=== PATIENT | female | born 1960 | race Two or more races ===

== ENCOUNTER 2024-10-16 07:23 | Emergency (ER) | payer OTHER ==
[~2024-10-16] VITALS: Ht 152.4 cm; Wt 70.3 kg
[~2024-10-16 07:23] MED LIST: AVALIDE 300-12.1 TA1; AVALIDE 300-12.1 TAB
[2024-10-16] MEDS ORDERED: NEURONTIN300 MG PO (08:04)
[2024-10-16] MEDS ORDERED: ORPHENADRINE CITRATE 30 MG/ML AMPUL IM ONE (08:30)
[2024-10-16] MEDS ORDERED: KETOROLAC TROMETHAMINE 60 MG VIAL IM ONE ×2 (08:30→08:37)
[2024-10-16] MEDS ORDERED: DEXAMETHASONE SODIUM PHOSPHATE 4 MG/ML VIAL IM ONE (08:30)
[2024-10-16] MEDS ORDERED: ORPHENADRINE CITRATE 30 MG/ML AMPUL ONE (08:36)
[2024-10-16] MEDS ORDERED: DEXAMETHASONE SODIUM PHOSPHATE 4 MG/ML VIAL ONE (08:37)
== END 2024-10-16 10:44 | disposition home or self-care (01) ==
LOC: ER 07:23
DX: M54.50 Low back pain, unspecified (principal); Z98.1 Arthrodesis status; I10 Essential (primary) hypertension
CPT/HCPCS: 96372; 99282; J1100; J1885; J2360

== ENCOUNTER 2025-05-10 11:00 | Inpatient (IN) | payer OTHER ==
[~2025-05-10] VITALS: Ht 30.5 cm; Wt 70.8 kg
[~2025-05-10 11:00] MED LIST changes: +NEURONTIN300 MG PO
[2025-05-10] MEDS ORDERED: PROTONIX40 MG PO (12:08)
[2025-05-10] MEDS ORDERED: LIPITOR20 MG (12:08)
[2025-05-18] MEDS ORDERED: PERCOCET 5-3251 EACH PO (13:40)
[2025-05-18] MEDS ORDERED: ONDANSETRON ODT8 MG PO (13:41)
[2025-05-18] MEDS ORDERED: AMOX-CLAV 875-1 EACH PO (13:41)
[2025-05-18] MEDS ORDERED: MEDROLPACK PO (13:41)
[2025-05-18] MEDS ORDERED: NEURONTIN800 MG PO (13:42)
[2025-05-18] MEDS ORDERED: GABAPENTIN100 M2 PO (13:42)
[2025-05-18] MEDS ORDERED: ENALAPRILAT DIHYDRATE 1.25 MG/ML VIAL IV PRN (16:15)
[2025-05-18] MEDS ORDERED: 0.9 % SODIUM CHLORIDE 1,000 ML IV SCH (16:15)
[2025-05-18] MEDS ORDERED: PROMETHAZINE HCL 50 MG/ML AMPUL IM PRN (16:15)
[2025-05-18] MEDS ORDERED: METHYLPREDNISOLONE SOD SUCC 125 MG VIAL IV SCH (17:00)
[2025-05-18] MEDS ORDERED: MORPHINE SULFATE 4 MG/ML VIAL IV SCH (17:00)
[2025-05-18] MEDS ORDERED: DOCUSATE SODIUM 100MG CAP PO SCH (17:00)
[2025-05-18] MEDS ORDERED: CEFAZOLIN SODIUM 1,000 MG in 0.9 % SODIUM CHLORIDE 50 ML IV SCH (17:00)
[2025-05-18] MEDS ORDERED: METHYLPREDNISOLONE ACETATE 80 MG/ML VIAL IM ONE (17:45)
[2025-05-18] MEDS ORDERED: ISOPROPYL ALCOHOL 30 ML OUNCE TOP ONE (17:45)
[2025-05-18] MEDS ORDERED: VANCOMYCIN HCL 1,000 MG VIAL IR ONE (17:45)
[2025-05-18] MEDS ORDERED: CEFAZOLIN SODIUM 1,000 MG VIAL IV ONE (17:45)
[2025-05-18] MEDS ORDERED: METHYLPREDNISOLONE SOD SUCC 125 MG VIAL IV ONE ×2 (17:45)
[2025-05-18] MEDS ORDERED: ACETAMINOPHEN 500 MG GEL..CAP PO SCH (20:00)
[2025-05-18] MEDS ORDERED: GABAPENTIN 800 MG TABLET PO SCH (21:00)
[2025-05-18] MEDS ORDERED: VANCOMYCIN HCL 1,000 MG VIAL IV SCH (21:00)
[2025-05-19] MEDS ORDERED: SODIUM CHLORIDE 0.45 % 1,000 ML IV SCH
[2025-05-19] MEDS ORDERED: OxyCODONE HCL 5 MG TABLET (ROXICODONE) PO PRN (06:01)
[2025-05-19 06:13] LABS: BASO % 0.1 % (0.1-1.2); EOS # 0.00 (0.04-0.54); EOS % 0.0 % (0.7-7.0); LYMPH # 0.60 (1.18-3.74); LYMPH % 5.2 % (19.3-53.1); MEAN PLATELET VOLUME 10.30 fl (9.4-12.4); MONO # 0.34 (0.24-0.82); MONO % 2.9 % (4.7-12.5); NEUT # 10.57 (1.56-6.13); NEUT % 91.2 % (34.0-71.1); RED CELL DISTRIBUTION WIDTH 13.5 % (11.6-14.4)
[2025-05-19 06:36] LABS: BUN CREA RATIO 19.0 (7.0-25.0); CREATININE SERUM 0.86 mg/dL (0.55-1.02); GFR 66.22; GLUCOSE FASTING 167.0 mg/dL (65-100); OSMOLALITY SERUM 284.0 MOSM/KG (275-295)
[2025-05-19 08:50] VITALS: BP 103/65; O2SAT 95
[2025-05-19] MEDS ORDERED: ATORVASTATIN CALCIUM 20 MG TABLET PO SCH (09:00)
[2025-05-19] MEDS ORDERED: TAMSULOSIN HCL 0.4 MG CAP PO SCH (09:00)
[2025-05-19] MEDS ORDERED: IRBESARTAN 300 MG TABLET PO SCH (09:00)
[2025-05-19 14:03] LABS: COVID-19 AG NEGATIVE (NEGATIVE)
[2025-05-19 16:49] VITALS: BP 102/68; O2SAT 95
== END 2025-05-19 18:00 | DRG 428 ==
LOC: SURH 05-18 11:00 → SURG 05-18 11:00 → O/R 05-18 11:00 → SURG 05-18 19:08 → SURH 05-18 20:30 → SURG 05-19 18:00
PROVIDERS: ADMIT Orthopaedic Surgery Orthopaedic Surgery of the Spine; ATTEND Orthopaedic Surgery Orthopaedic Surgery of the Spine
PROC: 0SG10K1 Fusion of 2 or more Lumbar Vertebral Joints with Nonautologous Tissue Substitute, Posterior Approach, Posterior Column, Open Approach (ICD-10-PCS; 2025-05-18)
PROC: 0ST20ZZ Resection of Lumbar Vertebral Disc, Open Approach (ICD-10-PCS; 2025-05-18)
PROC: 0QB30ZX Excision of Left Pelvic Bone, Open Approach, Diagnostic (ICD-10-PCS; 2025-05-18)
PROC: 4A11X4G Monitoring of Peripheral Nervous Electrical Activity, Intraoperative, External Approach (ICD-10-PCS; 2025-05-18)
PROC: 0SG10A0 Fusion of 2 or more Lumbar Vertebral Joints with Interbody Fusion Device, Anterior Approach, Anterior Column, Open Approach (ICD-10-PCS; principal; 2025-05-18 20:30)
DX: M43.16 Spondylolisthesis, lumbar region (principal); M48.062 Spinal stenosis, lumbar region with neurogenic claudication; M79.604 Pain in right leg; M48.061 Spinal stenosis, lumbar region without neurogenic claudication; M51.369 Other intervertebral disc degeneration, lumbar region without mention of lumbar back pain or lower extremity pain; E78.00 Pure hypercholesterolemia, unspecified; M51.26 Other intervertebral disc displacement, lumbar region; I10 Essential (primary) hypertension; Z98.1 Arthrodesis status; M47.26 Other spondylosis with radiculopathy, lumbar region